=== PATIENT | female | born 1990 | race Two or more races ===

== ENCOUNTER 2017-06-27 09:25 | Emergency (ER) | payer MEDICAID ==
[~2017-06-27] VITALS: Ht 162.6 cm; Wt 64.0 kg
[2017-06-27] MEDS ORDERED: HYDROCODONE/ACETAMINOPHEN 5/325MG TABLET PO ONE (10:30)
[2017-06-27 11:07] LABS: HCG SCREEN NEGATIVE
[2017-06-27] MEDS ORDERED: KETOROLAC 60MG/2ML VIAL IM ONE (12:15)
[2017-06-27 12:50] VITALS: BP 116/79
== END 2017-06-27 13:39 | disposition home or self-care (01) ==
LOC: ER 09:36
DX: M79.1 Myalgia (principal)
CPT/HCPCS: 71020; 72040; 73030; 73522; 73610; 84703; 96372; 99284; J1885; 99285; A4565